=== PATIENT | female | born 1995 | race American Indian/Alaskan Native ===

== ENCOUNTER 2021-02-06 21:33 | Emergency (ER) | payer SELFPAY ==
[2021-02-06 22:20] VITALS: BP 132/87
== END 2021-02-07 04:26 | disposition left against medical advice (07) ==
LOC: ED 21:33
DX: R22.30 Localized swelling, mass and lump, unspecified upper limb (principal); Z53.21 Procedure and treatment not carried out due to patient leaving prior to being seen by health care provider